=== PATIENT | female | born 1950 | race Caucasian/White ===

== ENCOUNTER 2017-01-06 00:43 | Day surgery (SDC) | payer MEDICARE, OTHER ==
[~2017-01-06] VITALS: Ht 170.2 cm; Wt 57.0 kg
[~2017-01-06 00:43] MED LIST: CRAN500T2 PO; DOCU240C41 PO; LEVO50TA6 PO; WHEA1POW6 PO
[2017-01-06] MEDS ORDERED: fentaNYL-PF 50 mCg/mL 2 mL Inj IVPUSH PRN (06:00)
[2017-01-06] MEDS ORDERED: Sodium Chloride LOK Flush 10 mL Syringe IV PRN (06:00)
[2017-01-06 12:17] VITALS: BP 125/73; PULSE 72; RESP 14; O2SAT 100
[2017-01-06] MEDS: 0.9% Sodium Chloride 1,000 ML IV SCH ×3 (12:30→13:19)
[2017-01-06 13:25] VITALS: BP 98/54; PULSE 62; RESP 12; O2SAT 98
[2017-01-06 13:35] VITALS: BP 99/56; PULSE 58; RESP 14; O2SAT 98
[2017-01-06 13:45] VITALS: BP 105/64; RESP 16; O2SAT 100
[2017-01-06 13:56] VITALS: BP 109/68; PULSE 68; RESP 14; O2SAT 100
--- NOTE | 2017-01-07 07:28 | ENDO ---
[address] [address] ENDOSCOPY PROCEDURE PATIENT: TOMY BISHOP : 1950 MR#: [id number] ADMIT: 01/06/2017 JOB ID: [id number] DATE OF SERVICE: 01/06/2017 TYPE OF OPERATION: Colonoscopy. PREOPERATIVE DIAGNOSES: 1. Rectal bleeding. 2. Constipation. POSTOPERATIVE DIAGNOSES: 1. Tortuous colon. 2. Small internal hemorrhoids. ANESTHESIA: Fentanyl 75 mcg, Versed 5 mg IV administered. COMPLICATIONS: None. BLOOD LOSS: Minimal. DESCRIPTION OF PROCEDURE: After risks and benefits explained to the patient, informed consent was obtained. After anesthesia administered, colonoscope was then inserted from the rectum to the cecum. Mucosa carefully examined. Prep of the patient was excellent. After the procedure was done, the scope was withdrawn and the procedure terminated. FINDINGS: Upon inspection of the anus, no masses, hemorrhoids, ulcers, or fissures were seen. Throughout the entire examination the colon was very torturous. Several sharp turns. No polyps or masses were seen. Retroflexion showed small internal hemorrhoids. IMPRESSION: 1. Small internal hemorrhoids. 2. Tortuous colon. RECOMMENDATIONS: 1. High-fiber diet. 2. Follow up with Jayleen Gonsalves PA-C as an outpatient. 3. Repeat colonoscopy in 10 years if the patient is average risk.
== END 2017-01-06 23:59 | disposition home or self-care (01) ==
LOC: END 00:43
PROVIDERS: ATTEND Internal Medicine Gastroenterology
DX: K62.5 Hemorrhage of anus and rectum (principal); K64.8 Other hemorrhoids; K59.00 Constipation, unspecified
CPT/HCPCS: 45378; G0500; J7030